=== PATIENT | female | born 1975 | race Caucasian/White ===

== ENCOUNTER 2016-10-21 09:03 | Outpatient (CLI) | payer MEDICAID ==
--- NOTE | 2016-10-21 11:29 | Mammography Report ---
RIGHT DIGITAL SCREENING MAMMOGRAM with CAD: 10/21/16 09:03:00 CLINICAL: Routine screening. Breast cancer survivor status post left mastectomy. COMPARISON:None. FINDINGS: The breast is heterogeneously dense, which may obscures small masses.No mass, architectural distortion or suspicious calcifications. IMPRESSION: No mammographic evidence of malignancy. BI-RADS CATEGORY: 1 - - Negative RECOMMENDATION: Routine screening in one year. ACR BI-RADS MAMMOGRAPHIC CODES: 0 = Needs additional imaging evaluation; 1 = Negative; 2 = Benign; 3 = Probably benign; 4 = Suspicious; 5 = Malignant; 6 = Known biopsy-proven malignancy COMMENT: 1. Dense breast tissue, i.e., adenosis, fibrocystic changes, etc., may obscure an underlying neoplasm. 2. Approximately 10% of cancers are not detected with mammography. 3. A negative mammography report should not delay biopsy if a clinically suspicious mass is present. COMMENT: Patient follow-up letters are generated via our [employer] application.
--- NOTE | 2016-10-21 11:31 | Mammography Report ---
BONE DEXA:10/21/16 09:03:00 CLINICAL: History of left breast cancer and on an aromatase inhibitor. TECHNIQUE: Two site bone DEXA performed on an Hologic scanner. FINDINGS: The average BMD of the lumbar spine L1-L4 is 0.691g/cm squared with a T-score of -3.2 and a Z-score of -2.9. The average BMD of the left hip is 0.707g/cm squared with a T-score of -1.9 and a Z-score of -1.7. IMPRESSION: 1. WHO classification: Osteoporosis with high fracture risk based on lumbar spine measurements. 2. WHO classification: Osteopenia with increased fracture risk based on left hip measurements. RECOMMENDATION: Clinical correlation and routine screening. DEFINITIONS: BMD = Bone Mineral Density T-score = BMD related to mean peak bone mass of young adult (mean expressed in Standard Deviation) Z-score = Age matched BMD expressed in SD World Health Organization (WHO) Diagnostic Criteria Normal T-score > -1 SD Osteopenia T-score between -1 and -2.4 SD Osteoporosis T-score -2.5 SD or below NOTE: BMD is not the only risk factor for fracture. One should also consider factors such as the patient's age, risk of falling, previous osteoporotic fracture, family history of osteoporotic fractures, current smoker, and low body weight. Z-scores are not calculated if >80 years of age.
--- NOTE | 2016-10-21 12:39 | Magnetic Resonance Report ---
MRI BRAIN WITHOUT AND WITH CONTRAST: 10/21/16 CLINICAL: Syncope and history of left breast cancer. TECHNIQUE: Axial diffusion, T1, FLAIR, gradient echo T2*, and coronal and axial T2 and sagittal T1 plus coronal and axial postcontrast T1 sequences on a 1.5 Maria Teresa magnet. 12.0 cc of Multihance was injected intravenously for the contrast portion of the exam. Consent was obtained prior to the administration of contrast. FINDINGS: Normal ventricles and sulci. No restricted diffusion. No abnormal signal. No mass or enhancing lesion. No hemorrhage, edema or extra-axial collection. Normal pituitary and optic chiasm. The brainstem and cerebellum are normal. Intact vascular flow voids. The orbits, sinuses and soft tissues are normal. Normal calvarium and skull base. IMPRESSION: Normal study. No acute change and no evidence of metastasis.
== END 2016-10-21 09:04 | disposition home or self-care (01) ==
LOC: SPVWC 09:03
PROVIDERS: ATTEND Internal Medicine Hematology
DX: Z12.31 Encounter for screening mammogram for malignant neoplasm of breast (principal); M81.0 Age-related osteoporosis without current pathological fracture; M85.88 Other specified disorders of bone density and structure, other site; R55 Syncope and collapse; Z85.3 Personal history of malignant neoplasm of breast; Z90.12 Acquired absence of left breast and nipple
CPT/HCPCS: 70553; 77080; A9577; G0202

== ENCOUNTER 2017-02-08 07:12 | Outpatient (CLI) | payer OTHER ==
--- NOTE | 2017-02-08 11:42 | Nuclear Medicine Report ---
BONE SCAN: History: Malignant neoplasm of left breast, restaging. Comparison: Bone scan dated 09/03/15. After injection of isotope, gamma camera imaging of the bony system was done. There is a normal uptake of isotope throughout the bony structures without areas of significantly increased or decreased uptake. Normal uptake in the urinary system is seen. IMPRESSION: Normal bone scan. No change since 09/03/15.
== END 2017-02-08 07:13 | disposition home or self-care (01) ==
LOC: NM 07:12
PROVIDERS: ATTEND Internal Medicine Hematology
DX: M85.80 Other specified disorders of bone density and structure, unspecified site (principal); C50.912 Malignant neoplasm of unspecified site of left female breast
CPT/HCPCS: 78306; A9503

== ENCOUNTER 2017-09-06 09:16 | Outpatient (CLI) | payer OTHER ==
--- NOTE | 2017-09-06 10:16 | Mammography Report ---
BONE DEXA:09/06/17 09:16:00 CLINICAL: History left breast cancer on an aromatase inhibitor. COMPARISON: 10/21/16 TECHNIQUE: Two site bone DEXA performed on an Hologic scanner. FINDINGS: The average BMD of the lumbar spine L1-L4 is 0.717g/cm squared with a T-score of -3.0 and a Z-score of -2.6. This compares to 0.691g/cm squared on the last exam and represents a +3.7% change from the previous baseline. The average BMD of the left hip is 0.760g/cm squared with a T-score of -1.5 and a Z-score of -1.2. This compares to 0.707g/cm squared on the last exam and represents a +7.5% change from the previous baseline. IMPRESSION: 1. WHO classification: Osteoporosis with high fracture risk based on spine measurements. A modest improvement in spine BMD compared to the prior exam. 2. WHO classification: Osteopenia with increased fracture risk based on left hip measurements. A moderate improvement in left hip BMD compared to the prior exam. RECOMMENDATION: Clinical correlation and routine screening. DEFINITIONS: BMD = Bone Mineral Density T-score = BMD related to mean peak bone mass of young adult (mean expressed in Standard Deviation) Z-score = Age matched BMD expressed in SD World Health Organization (WHO) Diagnostic Criteria Normal T-score > -1 SD Osteopenia T-score between -1 and -2.4 SD Osteoporosis T-score -2.5 SD or below NOTE: BMD is not the only risk factor for fracture; also consider factors such as the patient's age, risk of falling, previous osteoporotic fracture, family history of osteoporotic fractures, current smoker, and low body weight. Z-scores are not calculated if >80 years of age.
== END 2017-09-06 09:17 | disposition home or self-care (01) ==
LOC: SPVWC 09:16
PROVIDERS: ATTEND Internal Medicine Hematology
DX: M81.0 Age-related osteoporosis without current pathological fracture (principal); M85.88 Other specified disorders of bone density and structure, other site; Z85.3 Personal history of malignant neoplasm of breast
CPT/HCPCS: 77080

== ENCOUNTER 2018-06-14 09:25 | Outpatient (CLI) | payer OTHER ==
--- NOTE | 2018-06-14 10:48 | Mammography Report ---
Right mammogram: Compared to 10/21/16. CAD study utilized. Findings: Scattered glandular parenchyma right breast. Focal new dense 3 mm asymmetry upper posterior right breast. No microcalcification. Benign axilla. Impression: Focal new dense asymmetry right breast. Recommend spot compression and if necessary sonographic examination. BI-RADS CATEGORY: 0 = Needs additional imaging evaluation ACR BI-RADS MAMMOGRAPHIC CODES: 0 = Needs additional imaging evaluation; 1 = Negative; 2 = Benign; 3 = Probably benign; 4 = Suspicious; 5 = Malignant; 6 = Known biopsy-proven malignancy COMMENT: 1. Dense breast tissue, i.e., adenosis, fibrocystic changes, etc., may obscure an underlying neoplasm. 2. Approximately 10% of cancers are not detected with mammography. 3. A negative mammography report should not delay biopsy if a clinically suspicious mass is present.
== END 2018-06-14 09:26 | disposition home or self-care (01) ==
LOC: SPVWC 09:25
PROVIDERS: ATTEND Internal Medicine Hematology
DX: Z12.31 Encounter for screening mammogram for malignant neoplasm of breast (principal)

== ENCOUNTER 2018-12-12 11:23 | Outpatient (CLI) | payer OTHER ==
--- NOTE | 2018-12-12 15:25 | Mammography Report ---
RIGHT DIGITAL DIAGNOSTIC MAMMOGRAM INDICATION: Recall for asymmetry. TECHNIQUE: Digital right mammographic imaging was performed. COMPARISON: 06/14/2018 FINDINGS: Breast Density: The breast is heterogeneously dense, which may obscure small masses. Additional right mammographic views were performed and are negative.. Satisfactory effacement of asymmetry on the MLO view. IMPRESSION: No mammographic evidence of malignancy. BI-RADS Category 1: Negative. Recommend routine screening mammography in one year. A "normal" or negative report should not discourage follow up or biopsy of a clinically significant f inding. A written summary of these findings will be mailed to the patient. The patient will be entered into a mammography reporting system which will generate a reminder letter for the patient's next appointmen t at the appropriate interval. FURTHER INFORMATION: According to the [employer], yearly mammograms are recommend ed starting at age 40 and continuing as long as a woman is in good health. Breast MRI is recommended for women with an approximately 20-25% or greater lifetime risk of breast cancer, including women wi th a strong family history of breast or ovarian cancer and women who have been treated for Hodgkin's disease. Signer Name: Jose Ojeda MD Signed: 12/12/2018 3:21 PM Workstation Name: [id number]
== END 2018-12-12 11:24 | disposition home or self-care (01) ==
LOC: SPVWC 11:23
PROVIDERS: ATTEND Internal Medicine Hematology
DX: R92.8 Other abnormal and inconclusive findings on diagnostic imaging of breast (principal)

== ENCOUNTER 2020-02-19 08:09 | Outpatient (CLI) | payer OTHER ==
[2020-02-19 09:09] LABS: Blood Urea Nitrogen 8 mg/dL (7-17)
--- NOTE | 2020-02-19 12:32 | Nuclear Medicine Report ---
NUCLEAR MEDICINE BONE SCAN, WHOLE BODY INDICATION: MALIGNANT NEOPLASM OF UNSPECIFIED SITE ON LEFT FEMALE BREAST. TECHNIQUE: 26.3 mCi of Tc-99m MDP were injected IV. Whole body images were obtained. COMPARISON: Bone scan dated 02/08/2017. CT chest abdomen and pelvis performed the same day.. FINDINGS: Skeletal Structures: Homogeneous and symmetric uptake. No significant degenerative uptake is apprecia carolyn. Skeletal Lesions: None. Soft Tissues: Normal. Kidneys: Normal, symmetric activity. Additional Findings: None. IMPRESSION: No significant scintigraphic abnormality. Signer Name: Ren Cagle Jr, MD Signed: 02/19/2020 12:27 PM Workstation Name: [id number]
--- NOTE | 2020-02-19 12:56 | Cat Scan Report ---
CT CHEST WITH CONTRAST INDICATION / CLINICAL INFORMATION: MALIGNANT NEOPLASM OF UNSPECIFIED SITE ON LEFT FEMALE BREAST. TECHNIQUE: Axial CT images were obtained through the chest after 100 cc Omnipaque 300 IV contrast. Sagittal and coronal reformatted images. All CT scans at this location are performed using CT dose reduction for A JEN by means of automated exposure control. COMPARISON: 02/16/2017 FINDINGS: HEART: No significant abnormality. THORACIC AORTA: No significant abnormality. MEDIASTINUM and RATNA: No significant abnormality. LUNGS: No acute air space or interstitial disease. No evidence for pulmonary nodule. PLEURA: No significant pleural effusion. No pneumothorax. SKELETAL SYSTEM: No suspicious bony lesions are detected. ADDITIONAL FINDINGS: Stable left mastectomy changes. IMPRESSION: No evidence for disease recurrence or metastasis in the chest. CT ABDOMEN AND PELVIS WITH CONTRAST HISTORY: MALIGNANT NEOPLASM OF UNSPECIFIED SITE ON LEFT FEMALE BREAST COMPARISON: 02/16/2017 TECHNIQUE: Axial CT images were obtained through the abdomen and pelvis after 100 cc of Omnipaque 300 intravenously. Sagittal and coronal reformatted images. All CT scans at this location are performed using CT dose reduction for ALARA by means of automated exposure control. FINDINGS: CT ABDOMEN: Liver: No significant abnormality. Biliary: No significant abnormality. Spleen: No significant abnormality. Unenlarged. Pancreas: No significant abnormality. Adrenals: No significant abnormality. Kidneys: No significant abnormality. Lymphatics: No lymphadenopathy. Vasculature: No significant abnormality. Bowel/Peritoneum: No significant abnormality. No free air. No free fluid. Normal appendix. CT PELVIS: : No significant abnormality. Osseous Structures: No suspicious bony lesion is detected. Additional Findings: None IMPRESSION: No significant abnormality. No evidence for metastatic disease to the abdomen or pelvis. Signer Name: Ren Cagle Jr, MD Signed: 02/19/2020 12:52 PM Workstation Name: [id number]
== END 2020-02-19 08:10 | disposition home or self-care (01) ==
LOC: NM 08:09
PROVIDERS: ATTEND Internal Medicine Hematology & Oncology
DX: C50.912 Malignant neoplasm of unspecified site of left female breast (principal); R53.83 Other fatigue
CPT/HCPCS: 36415; 71260; 74177; 78306; 82565; 84520; A9503; Q9967

== ENCOUNTER 2021-02-12 09:12 | Outpatient (CLI) | payer OTHER ==
--- NOTE | 2021-02-12 10:48 | Mammography Report ---
DEXA BONE DENSITY SCAN INDICATION / CLINICAL INFORMATION: OSTEOPOROSIS M81.0. 45 years Female COMPARISON: 09/06/2017 LUMBAR SPINE, L1-L4: - Bone mineral density (BMD) = 0.746 g/cm2. - T-score = -2.7 - Z-score = -2.2 Change (%) since most recent prior (if available): +4.1 LEFT HIP, NECK : - Bone mineral density (BMD) = 0.609 g/cm2. - T-score = -2.2 - Z-score = -1.6 Change (%) since most recent prior (if available): +2.6 IMPRESSION: 1. WHO Classification: Osteoporosis. Fracture Risk: High. 2. 10-Year Fracture Risk (FRAX) = Major Osteoporotic Not reported.% / Hip: Not reported.% FRAX generally not reported for patients with normal or osteoporotic BMD, in sxo-[id number] ester ents younger than age 50, or in patients undergoing pharmacotherapy BMD Reporting Guidelines (ISCD, 2015) BMD Reporting in Postmenopausal Women and in Men Age 50 and Older - T-scores are preferred. - The WHO densitometric classification is applicable. BMD Reporting in Females Prior to Menopause and in Males Younger Than Age 50 - Z-scores, not T-scores, are preferred. This is particularly important in children. - A Z-score of -2.0 or lower is defined as below the expected range for age, and a Z-score above -2.0 is within the expected range for age. - Osteoporosis cannot be diagnosed in men under age 50 on the basis of BMD alone. - The WHO diagnostic criteria may be applied to women in the menopausal transition. http://www.iscd.org/official-positions/8319-kdaq-djjvzhos-positions-adult/ Signer Name: Bladimir Holder MD Signed: 02/12/2021 10:40 AM Workstation Name: [id number]
--- NOTE | 2021-02-12 14:44 | Mammography Report ---
DIGITAL SCREENING MAMMOGRAM WITH CAD, 02/12/2021 CLINICAL INFORMATION / INDICATION: Routine screening mammography. SCREENING MAMMO UNILATERAL RIGHT TECHNIQUE: Digital right 2D mammography was obtained in the craniocaudal and mediolateral oblique pr ojections. This examination was interpreted with the benefit of Computer-Aided Detection analysis. COMPARISON: 10/21/2016 through 12/05/2019. FINDINGS: Breast Density: The breasts are heterogeneously dense, which may obscure small masses. No dominant mass, suspicious calcifications, or architectural distortion in the right breast. IMPRESSION: No mammographic evidence of malignancy. Follow up recommendation: Routine yearly BI-RADS Category 1: Negative. A "normal" or negative report should not discourage follow up or biopsy of a clinically significant f inding. A written summary of these findings will be mailed to the patient. The patient will be entered into a mammography reporting system which will generate a reminder letter for the patient's next appointmen t at the appropriate interval. The [employer] recommends yearly mammograms starting at age 40 and continuing as l moises as a woman is in good health. Breast MRI is recommended for women with an approximate 20-25% or greater lifetime risk of breast cancer, including women with a strong family history of breast or ova rhea cancer or who have been treated for Hodgkin's disease. Signer Name: Jose Benitez MD Signed: 02/12/2021 2:39 PM Workstation Name: [id number]
== END 2021-02-12 09:13 | disposition home or self-care (01) ==
LOC: SPVWC 09:12
PROVIDERS: ATTEND Internal Medicine Hematology
DX: Z12.31 Encounter for screening mammogram for malignant neoplasm of breast (principal); C50.912 Malignant neoplasm of unspecified site of left female breast; M81.0 Age-related osteoporosis without current pathological fracture; R53.83 Other fatigue
CPT/HCPCS: 77080